=== PATIENT | male | born 1980 | race Caucasian/White ===

== ENCOUNTER 2016-11-26 05:30 | Emergency (ER) | payer BC ==
[~2016-11-26] VITALS: Ht 177.8 cm; Wt 79.5 kg
[2016-11-26] MEDS ORDERED: ONDANSETRON 2MG/ML, 2ML IVPush ONE (06:00)
[2016-11-26] MEDS ORDERED: SODIUM CHLORIDE 0.9% 1,000ML IVBOLUS ONE (06:00)
[2016-11-26] MEDS ORDERED: SODIUM CHLORIDE FLUSH 10ML SYR IVF ONE (06:00)
[2016-11-26 06:24] LABS: BLOOD UREA NITROGEN 12 mg/dL (7-18)
== END 2016-11-26 08:34 | disposition home or self-care (01) ==
LOC: ED 08:28
DX: R55 Syncope and collapse (principal)
CPT/HCPCS: 36415; 70450; 80048; 82040; 82962; 85025; 93005; 96360; 99285; J7030